=== PATIENT | female | born 1945 | race Caucasian/White ===

== ENCOUNTER 2017-06-10 10:50 | Emergency (ER) | payer MEDICARE, BC ==
[2017-06-10 11:55] LABS: #Basophils 0.1 thou/uL (0.0-0.2); #Eosinphils 0.2 thou/uL (0.0-0.7); #Lymphocytes 1.6 thou/uL (1.20-3.40); #Monocytes 0.7 thou/uL (0.11-0.59); %Basophils 0.8 % (0.0-1.0); %Eosinophils 2.5 % (0.0-10.0); %Lymphocytes 21.2 % (21.0-51.0); %Monocytes 9.1 % (0.0-10.0); Hematocrit 44.5 % (36.0-47.0); Mean Platelet Volume 6.3 fL (7.4-10.4); Red Blood Cell (RBC) Count 5.23 mill/uL (4.20-5.40); White Blood Cell (WBC) Count 7.6 thou/uL (4.8-10.8)
--- NOTE | 2017-06-10 12:05 | CT ---
CT BRAIN 06/10/17 PROVIDED CLINICAL HISTORY: Headache status post syncope. FINDINGS: No comparisons. The ventricular system appears normal in size and morphology. There is no evidence f or intracranial hemorrhage or mass effect. The extracranial soft tissues and osseous structures demo nstrate an unremarkable CT appearance. IMPRESSION: No evidence for intracranial hemorrhage or mass effect. POS: [facility]
[2017-06-10 12:16] LABS: ALT (SGPT) 23 U/L (8-55); AST (SGOT) 19 U/L (5-34); Alkaline Phosphatase 65 U/L (40-150); Anion Gap 11 mmol/L (10-20); BUN (Urea Nitrogen) 19 mg/dL (9.8-20.1); Bilirubin, Total 0.4 mg/dL (0.2-1.2); CK (CPK) 48 U/L (29-168); Calc. Creatinine Clearance 0 mL/min (70-130); Calcium 9.3 mg/dL (7.8-10.44); Carbon Dioxide 29 mmol/L (23-31); Chloride 101 mmol/L (98-107); Estimated GFR-MDRD 78; Globulin 3.1 g/dL (2.4-3.5); Protein, Total 7.4 g/dL (6.0-8.3)
[2017-06-10 12:28] LABS: Troponin I Less than 0.010 ng/mL (< 0.028)
== END 2017-06-10 13:00 | disposition home or self-care (01) ==
LOC: ERS 10:50
DX: R51 Headache (principal); R55 Syncope and collapse
CPT/HCPCS: 36415; 70450; 80053; 82550; 82553; 84484; 85025; 93005

== ENCOUNTER 2017-12-16 10:15 | Outpatient (CLI) | payer MEDICARE, BC ==
--- NOTE | 2017-12-16 11:15 | MMO ---
BILATERAL MAMMOGRAMS: DATE: 12/16/17 HISTORY: Screening mammography. COMPARISON: Multiple studies dating back to 09/14/12. FINDINGS: Heterogeneously dense fibroglandular tissue and benign-appearing calcifications are present. No domin ant mass or suspicious calcifications. The study was evaluated with the assistance of computer-aided detection. IMPRESSION: BIRADS 1: Negative Suggest routine follow-up. POS: [facility]
== END 2017-12-16 10:16 | disposition home or self-care (01) ==
LOC: SCSMAMMO 10:15
PROVIDERS: ATTEND Internal Medicine
DX: Z12.31 Encounter for screening mammogram for malignant neoplasm of breast (principal)
CPT/HCPCS: 77067

== ENCOUNTER 2018-12-21 13:03 | Outpatient (CLI) | payer MEDICARE, BC ==
--- NOTE | 2018-12-21 13:58 | MMO ---
Bilateral MAMMO Bilat Screen [facility]. CLINICAL HISTORY: Patient is 73 years old and is seen for screening. The patient has no family history of breast cancer. The patient has no personal history of cancer. VIEWS: The views performed were: bilateral craniocaudal with tomosynthesis and bilateral mediolateral oblique with tomosynthesis. FILMS COMPARED: The present examination has been compared to prior imaging studies performed at [facility] on 09/29/2010, 11/27/2015, 12/08/2016 and 12/16/2017. MAMMOGRAM FINDINGS: The breasts are heterogeneously dense, which could obscure a lesion on mammography. There are stable benign appearing calcifications seen in both breasts. There are no suspicious masses, suspicious calcifications, or new areas of architectural distortion. IMPRESSION: THERE IS NO MAMMOGRAPHIC EVIDENCE OF MALIGNANCY. A ROUTINE FOLLOW-UP MAMMOGRAM IN 1 YEAR IS RECOMMENDED. THE RESULTS OF THIS EXAM WERE SENT TO THE PATIENT. ACR BI-RADS Category 2 - Benign finding MAMMOGRAPHY NOTE: 1. A negative mammogram report should not delay a biopsy if a dominant of clinically suspicious mass is present. 2. Approximately 10% to 15% of breast cancers are not detected by mammography. 3. Adenosis and dense breasts may obscure an underlying neoplasm.
== END 2018-12-21 13:04 | disposition home or self-care (01) ==
LOC: BICMAMMO 13:03
PROVIDERS: ATTEND Internal Medicine
DX: Z12.31 Encounter for screening mammogram for malignant neoplasm of breast (principal)
CPT/HCPCS: 77063; 77067

== ENCOUNTER 2018-12-22 09:02 | Outpatient (CLI) | payer MEDICARE, BC ==
--- NOTE | 2018-12-22 10:27 | BD ---
DEXA BONE DENSITY STUDY: Date: 12/22/18 HISTORY: Postmenopausal. FINDINGS: Lumbar Spine: BMD (g/cm2) L1 0.918 T-Score: -0.7 L2 1.098 T-Score: +0.6 L3 1.022 T-Score: -0.6 L4 0.812 T-Score: -2.3 Total 0.958 T-Score: -0.8 Left Femoral Neck: 0.759 T-Score: -0.8 Total Femur: 0.941 T-Score: +0.0 IMPRESSION: Normal bone mineral density of the lumbar spine and left hip. POS: [facility]
== END 2018-12-22 09:03 | disposition home or self-care (01) ==
LOC: BICMAMMO 09:02
PROVIDERS: ATTEND Internal Medicine
DX: M85.80 Other specified disorders of bone density and structure, unspecified site (principal)
CPT/HCPCS: 77080

== ENCOUNTER 2020-12-06 09:46 | Outpatient (CLI) | payer MEDICARE, BC | END 2020-12-06 09:47 | disposition home or self-care (01) | LOC: BICMAMMO 09:46 | PROVIDERS: ATTEND Internal Medicine | DX: Z12.31 Encounter for screening mammogram for malignant neoplasm of breast (principal); Z13.820 Encounter for screening for osteoporosis; Z78.0 Asymptomatic menopausal state | CPT/HCPCS: 77063; 77067; 77080 ==